=== PATIENT | female | born 1960 | race Caucasian/White ===

== ENCOUNTER 2016-12-03 06:45 | Day surgery (SDC) | payer BC ==
[~2016-12-03 06:45] MED LIST: Acetaminophen TAB* 325 MG PO ONE; Buffered Lidocaine 0.9% SYRIN* 5 ML/SYR SYRINGE INTRADERM ONE; Metoclopramide IV* 5 MG/ML 2 ML VIAL IV SLOW PU ONE; Ondansetron INJ* 2 MG/ML VIAL IV ONE
[2016-12-03] MEDS ORDERED: Midazolam* 1 MG/ML 2 ML VIAL (2 MG) ONE ×2 (07:02→08:16)
[2016-12-03] MEDS ORDERED: fentaNYL* 50 MCG/ML 2 ML VIAL (100 MCG VIAL) ONE (07:02)
[2016-12-03] MEDS ORDERED: Lidocaine 1% INJ* 10 MG/ML 30 ML SDV ONE (07:09)
[2016-12-03] MEDS ORDERED: Dexamethasone IV* 4 MG/ML 1 ML (4 MG) ONE (07:10)
[2016-12-03] MEDS ORDERED: Bupivacaine 0.5% SDV PF* 30 ML VIAL ONE (07:10)
[2016-12-03] MEDS ORDERED: Propofol* 500 MG/50 ML BTL ONE (07:12)
[2016-12-03] MEDS ORDERED: Acetaminophen TAB* 325 MG ONE (07:16)
[2016-12-03] MEDS ORDERED: Metoclopramide IV* 5 MG/ML 2 ML VIAL ONE (07:16)
[2016-12-03] MEDS ORDERED: Ondansetron INJ* 2 MG/ML VIAL ONE (07:16)
[2016-12-03] MEDS ORDERED: ceFAZolin 2 GM PREMIX (*) 50 ML IVPB ONE (07:38)
[2016-12-03] MEDS ORDERED: Ondansetron INJ* 2 MG/ML VIAL IV PRN (08:48)
[2016-12-03] MEDS ORDERED: DiMENhydriNATE IV* 50 MG/ML VIAL IV PUSH PRN (08:48)
[2016-12-03] MEDS ORDERED: HYDROmorphone* 1 MG/ML 1 ML SYR IV PRN (08:48)
[2016-12-03] MEDS ORDERED: fentaNYL* 50 MCG/ML 2 ML VIAL (100 MCG VIAL) IV PRN (08:48)
[2016-12-03] MEDS ORDERED: Ketorolac INJ* 30 MG/ML 1 ML VIAL ONE (08:55)
[2016-12-03] MEDS ORDERED: Propofol* 10 MG/ML 20 ML BTL IV PUSH ONE ×2 (08:55→09:46)
[2016-12-03] MEDS ORDERED: Lidocaine 2% PF * 5 ML VIAL ONE (08:55)
[2016-12-03 11:11] VITALS: BP 105/57
--- NOTE | 2016-12-03 17:36 | RAD ---
INDICATION: Right foot bunionectomy. COMPARISONS: None relevant TECHNIQUE: Fluoroscopy was provided for a surgical procedure. Total fluoroscopy time is: 21 seconds FINDINGS: Spot images demonstrate fixation of the first metatarsal. IMPRESSION: FLUOROSCOPY WAS PROVIDED FOR A SURGICAL PROCEDURE CPT II Codes: 6045F
--- NOTE | 2016-12-04 00:21 | OP ---
DATE OF OPERATION: 12/03/16 [facility] DATE OF : [birth year] SURGEON: Daniele Bunch DPM. CONFERENCE ASSISTANT: None. ANESTHESIOLOGIST: Mary Mason MD ANESTHESIA: MAC with local. PRE-OP DIAGNOSES: 1. Painful bunion deformity with hallux limitus, right foot. 2. Painful second right hammertoe. 3. Painful Tailor's bunion deformity on right foot. POST-OP DIAGNOSES: 1. Painful bunion deformity with hallux limitus, right foot. 2. Painful second right hammertoe. 3. Painful Tailor's bunion deformity on right foot. OPERATIVE PROCEDURE: 1. Bunionectomy with closing base wedge osteotomy and phalangeal osteotomy in the right foot. 2. Correction of second right hammertoe with arthroplasty of the PIPJ, second right digit. 3. Tailor's bunionectomy, right foot. 4. Fifth metatarsal osteotomy, right foot. PATHOLOGY: Degenerative bone. HEMOSTASIS: Pneumatic ankle tourniquet at 250 mmHg. MATERIALS: Three of the 3.0 mm cannulated Addy screws and one 2.0 mm cannulated Addy screw. INDICATIONS: The patient has chronic right forefoot pain and deformity with hypertrophic bone medially at the first metatarsal head laterally, the fifth metatarsal head, increased in the first and fifth intermetatarsal angles, lateral deviation of the great toe, dorsal contracture with prominence of the proximal interphalangeal joint of the second right toe. The patient has pain on walking and wearing shoes and opts for surgery at this time to attempt to decrease pain and improve function. DESCRIPTION OF PROCEDURE: The patient was brought to the operating room, placed on the operating room table in a supine position. The anesthesia department administered IV sedation and a peripheral nerve block was performed about the right forefoot with a 1:1 mixture of 1% lidocaine plain and 0.5% Marcaine plain. Right foot was then prepped and draped in usual fashion. The right foot was then exsanguinated and elevated, and the pneumatic ankle tourniquet was inflated to 250 mmHg above a well-padded right ankle. Attention was directed to the dorsomedial aspect of the right great toe joint, where a curvilinear incision was made. The incision was deepened through the subcutaneous tissues with care being taken to retract neurovascular structures and cauterize superficial bleeders as needed. An inverted L-capsular periosteal incision was made as well as extended up into the proximal phalanx. The periosteal and capsular tissues were reflected off the joint in the first metatarsal and base of the proximal phalanx and hypertrophic bone was resected from the medial eminence in a manner to preserve the sagittal groove. A traditional lateral release was performed and McGlamry elevator was needed to free plantar lateral adhesions of the great toe joint. A closing base wedge osteotomy was performed and with the osteotomy reduced, temporary fixation was achieved with a bone clamp and two of the wires from the screw set. Position was assessed with intraoperative C-arm. Next, using a standard technique, two 3.0 mm cannulated screws were placed across the osteotomy site. Temporary fixation was removed. The osteotomy was inspected, found to be solid, no detectable motion or gapping. The screws were 2 fingers tight. A power flaco was used to smooth the hypertrophic bone at the medial first metatarsal head. The surgical site was flushed with copious amounts of normal sterile saline. Next, an angular phalangeal osteotomy was performed at the proximal phalanx angled from more distal medial to more proximal lateral with the wedge removed. The osteotomy was reduced. Temporary fixation was achieved with a bone clamp and a wire from the screw set. The position was checked with the C-arm and it should be noted that the C-arm had some malfunction with the imaging, although still visible with the fixation and positioning despite the resolution being suboptimal. Using standard technique, a 3.0-mm Addy cannulated screw was placed across the osteotomy site. The temporary fixation was removed and the position was assessed with C-arm and the osteotomy was found to be solid, no detectable motion or gapping and the screw was 2 fingers tight. Redundant medial capsule was resected and a capsulorraphy was performed and after the surgical site was flushed with copious amounts of normal sterile saline, 2-0 Polysorb was used to reapproximate and secure the capsular and periosteal tissues while holding the hallux in the rectus position. Subcutaneous tissues were reapproximated with 4-0 Polysorb and skin was closed with 5-0 nylon. Attention was directed to the proximal interphalangeal joint of the second digit where two converging semi-elliptical incisions were made over the proximal interphalangeal joint. The resultant skin wedge was resected. Transverse tenotomy and capsulotomy was performed to allow for exposure of the proximal interphalangeal joint. It should be noted that the proximal phalangeal head was resected with a sagittal saw and a power flaco was used to smooth the rough edges. The surgical site was flushed with copious amounts of normal sterile saline. With this being done, there was noted to be adequate reduction of the contraction of the digit. The tendons and capsule reapproximated and secured with 4-0 Polysorb. Subcutaneous tissues were reapproximated with 4-0 Polysorb and skin was reapproximated and secured with 5- 0 nylon. Attention was directed to the dorsolateral aspect of the fifth metatarsophalangeal joint, where a curvilinear incision was made. The incision was deepened through subcutaneous tissues with care being taken to retract neurovascular structures and cauterize superficial bleeders as needed. Next, a linear periosteal and capsular incision was made to allow for exposure of the distal fifth metatarsal. The hypertrophic bone was noted laterally, which was resected with a sagittal saw. Power flaco was used to smooth rough edges. Next, the fifth metatarsal osteotomy was performed longitudinal cut was made from lateral to medial with sagittal saw and the plantar proximal wing was then cut. The capital fragments were rotated and transposed medially to the corrected position and temporary fixation was achieved with bone clamp and wires from screw set. After assessing the position with the C-arm, a 2.0-mm cannulated Palmer screw was placed across the osteotomy site using standard technique. The fixation was assessed visually as well as with C-arm. Temporary fixation was removed and again checked with C-arm and osteotomy was found to be solid and no detectable motion or gapping. Power flaco was used to smooth the rough edges. The periosteal and capsular tissues were reapproximated with 4-0 Polysorb. Subcutaneous tissues were reapproximated with 4-0 Polysorb and the skin was reapproximated and secured with 5-0 nylon. 12 mg total of dexamethasone phosphate was infiltrated about the surgical sites. The surgical sites were dressed with Xeroform gauze and light compressive dressing was performed with 4x4 gauze, Josiah, and light Coban wrap. Pneumatic ankle tourniquet was deflated about the right ankle and a prompt hyperemic response was noted in all 5 digits of the patient's right foot. Having appeared to tolerate the procedure and the anesthesia well, the patient was transported via cart from the operating room to Recovery in satisfactory condition with capillary refill less than 3 seconds to all digits of the right foot. [id number]/[facility] #: [id number] MTDD
== END 2016-12-03 07:15 | disposition home or self-care (01) ==
LOC: OREAST 06:45
PROVIDERS: ATTEND Podiatrist Foot Surgery
DX: M21.611 Bunion of right foot (principal); M20.5X1 Other deformities of toe(s) (acquired), right foot; M20.41 Other hammer toe(s) (acquired), right foot; M21.621 Bunionette of right foot; R00.2 Palpitations
CPT/HCPCS: 76000; A9270-GY; C1713; C1776; J0690; J1100; J1885; J2001; J2250; J2405; J2704; J2765; J3010

== ENCOUNTER 2017-01-31 10:25 | Emergency (ER) | payer BC ==
[2017-01-31 10:51] VITALS: BP 117/72
--- NOTE | 2017-01-31 11:11 | UC ---
Abdominal Pain Female HPI - HPI Summary HPI Summary: Pt has noticed some constipation and low abdominal discomfort starting a few days ago. When she goes to the bathroom, it is not as productive as the cramps feel like it should be. No blood or mucus in stool, had diarrhea last night after taking a dulcolax. Had diverticulitis in 2014 and her symptoms feel reminiscent of that. Denies urinary discomfort, frequency, or blood. No fever or vomiting. - History of Current Complaint Chief Complaint: UCGI Stated Complaint: DIVERTICULITIS Time Seen by Provider: 01/31/17 10:52 Hx Obtained From: Patient ?: No Onset/Duration: Gradual Onset, Lasting Days Timing: Constant Severity Initially: Mild Severity Currently: Mild Location: Suprapubic Radiates: No Character: Cramping, Dull Alleviating Factor(s): Nothing Associated Signs and Symptoms: Positive: Constipation. Negative: Fever, Blood in Stool, Urinary Symptoms, Decreased Appetite, Vaginal Discharge, Nausea, Vomiting Allergies/Adverse Reactions: Allergies Allergy/AdvReac Type Severity Reaction Status Date / Time Iodinated Contrast Media Allergy Itching Verified 01/31/17 10:45 [CONTRAST DYE] Morphine Allergy Itching Verified 01/31/17 10:45 Home Medications: Home Medications diPHENhydraMINE PO* [Benadryl PO 25 MG TAB*] 01/31/17 [History] PMH/Surg Hx/FS Hx/Imm Hx - Additional Past Medical History Additional PMH: hx diverticulitis - Surgical History Surgical History: Yes Surgery Procedure, Year, and Place: DISC IN LOWER BACK ,HERNIA REPAIR ,GANGLION CYST RT WRIST ; bunionectomy left foot - Family History Known Family History: Negative: Blood Disorder - Social History Occupation: Employed Full-time Lives: With Family Alcohol Use: Occasionally Alcohol Amount: 5-6 PER WEEK Substance Use Type: None Smoking Status (MU): Never Smoked Tobacco Have You Smoked in the Last Year: No Review of Systems Constitutional: Negative Skin: Negative Eyes: Negative ENT: Negative Respiratory: Negative Cardiovascular: Negative Gastrointestinal: Abdominal Pain Genitourinary: Negative Motor: Negative Neurovascular: Negative Musculoskeletal: Negative Neurological: Negative Psychological: Negative Is Patient Immunocompromised?: No All Other Systems Reviewed And Are Negative: Yes Physical Exam Triage Information Reviewed: Yes Appearance: Well-Appearing, No Pain Distress, Well-Nourished Vital Signs: Initial Vital Signs Temp 97.6 F 01/31/17 10:46 Pulse 50 01/31/17 10:46 Resp 16 01/31/17 10:46 BP 117/72 01/31/17 10:46 Pulse Ox 100 01/31/17 10:46 Vital Signs Reviewed: Yes Eye Exam: Normal, Other - PERRL Eyes: Positive: Conjunctiva Clear ENT Exam: Normal ENT: Positive: Normal ENT inspection, Hearing grossly normal, Pharynx normal, TMs normal Dental Exam: Normal Neck exam: Normal Neck: Positive: Supple, Nontender, No Lymphadenopathy Respiratory Exam: Normal Respiratory: Positive: Chest non-tender, Lungs clear, Normal breath sounds, No respiratory distress, No accessory muscle use Cardiovascular Exam: Normal Cardiovascular: Positive: RRR, No Murmur Abdominal Exam: Other - mild suprapubilc tenderness Abdomen Description: Positive: Soft. Negative: McBurney's Point Tenderness, Peritoneal Signs, Pulsatile Mass Bowel Sounds: Positive: Present Musculoskeletal Exam: Normal Neurological Exam: Normal Neurological: Positive: Alert Psychological Exam: Normal Skin Exam: Normal Abd Pain Female Course/Dx - Differential Dx/Diagnosis Provider Diagnoses: diverticulitis Discharge - Discharge Plan Condition: Stable Disposition: HOME Prescriptions: Amoxicillin/Clavulanate TAB* [Augmentin TAB 875*] 875 mg PO BID #14 tab Patient Education Materials: Diverticulitis (ED) Referrals: Tonia Walker MD [Primary Care Provider] - Additional Instructions: Though your symptoms are not a classic presentation of diverticulitis, treatment is fairly straightforward (bowel rest and antibiotics) and you are not ill in a worrisome way. Start clear fluids only and the antibiotics for 2-3 days, with gradually advancing to a low-fiber diet. See your primary care provider for a recheck within 5 days. If you develop fever, vomiting, or worsening pain, please go to the emergency department.
== END 2017-01-31 11:45 | disposition home or self-care (01) ==
LOC: UCEAST 10:25
DX: K57.92 Diverticulitis of intestine, part unspecified, without perforation or abscess without bleeding (principal); Z88.6 Allergy status to analgesic agent; Z91.041 Radiographic dye allergy status
CPT/HCPCS: 81003; 99212; G0463